=== PATIENT | male | born 1990 | race Caucasian/White ===

== ENCOUNTER 2021-05-13 13:51 | Emergency (ER) | payer OTHER ==
[~2021-05-13] VITALS: Ht 180.3 cm; Wt 74.8 kg
[2021-05-13 14:11] VITALS: BP 118/71
[2021-05-13] MEDS ORDERED: DICL50TA7 PO (15:10)
--- NOTE | 2021-05-13 15:21 | NUR ---
Patient discharged to home in stable condition. Written and verbal after care instructions given. Patient verbalizes understanding of instruction.
== END 2021-05-13 15:21 | disposition home or self-care (01) ==
LOC: ER 14:07
DX: S62.334A Displaced fracture of neck of fourth metacarpal bone, right hand, initial encounter for closed fracture (principal); S62.336A Displaced fracture of neck of fifth metacarpal bone, right hand, initial encounter for closed fracture; Z79.899 Other long term (current) drug therapy; W22.8XXA Striking against or struck by other objects, initial encounter; Y93.89 Activity, other specified; Y92.89 Other specified places as the place of occurrence of the external cause; Y99.8 Other external cause status
CPT/HCPCS: 73130-TC